=== PATIENT | male | born 1980 | race African-American/Black ===

== ENCOUNTER 2021-10-19 10:11 | Emergency (ER) | payer MEDICAID ==
[~2021-10-19] VITALS: Ht 172.7 cm; Wt 85.0 kg
[2021-10-19] MEDS ORDERED: IBUPROFEN 600MG TABLET PO ONE (10:45)
[2021-10-19] MEDS ORDERED: ONDANSETRON 4MG ODT PO ONE (10:45)
[2021-10-19 11:21] VITALS: BP 88/64
[2021-10-19] MEDS ORDERED: ALBU6.7H15 INH (11:39)
[2021-10-19] MEDS ORDERED: GUAI-741 MT (11:39)
[2021-10-19] MEDS ORDERED: ONDA4TAB11 PO (11:39)
[2021-10-19] MEDS ORDERED: IBUP-2029 MT (11:39)
== END 2021-10-19 11:45 | disposition home or self-care (01) ==
LOC: ER 10:11
DX: R50.9 Fever, unspecified (principal); M79.18 Myalgia, other site; Z20.822 Contact with and (suspected) exposure to COVID-19; R11.2 Nausea with vomiting, unspecified
CPT/HCPCS: 87426; 99283; C9803; Q0162

== ENCOUNTER 2021-10-22 10:16 | Emergency (ER) | payer MEDICAID ==
[~2021-10-22] VITALS: Ht 172.7 cm; Wt 82.0 kg
[~2021-10-22 10:16] MED LIST: ALBU6.7H15 INH; GUAI-741 MT; IBUP-2029 MT; ONDA4TAB11 PO
[2021-10-22] MEDS ORDERED: DIPHENHYDRAMINE 25MG CAPSULE PO ONE (11:00)
[2021-10-22] MEDS ORDERED: KETOROLAC 30MG/ML VIAL IM ONE (11:00)
[2021-10-22] MEDS ORDERED: METOCLOPRAMIDE HCL 5MG TABLET PO ONE (11:00)
[2021-10-22 12:14] VITALS: BP 130/72
== END 2021-10-22 12:16 | disposition home or self-care (01) ==
LOC: ER 10:16
DX: B34.9 Viral infection, unspecified (principal); J45.909 Unspecified asthma, uncomplicated; Z20.822 Contact with and (suspected) exposure to COVID-19
CPT/HCPCS: 71045; 87426; 96372; 99284; C9803; J1885; J8597; Q0163

== ENCOUNTER 2022-06-01 09:25 | Emergency (ER) | payer MEDICAID ==
[~2022-06-01] VITALS: Ht 175.3 cm; Wt 82.0 kg
[2022-06-01 09:37] VITALS: BP 135/85
[2022-06-01] MEDS ORDERED: ALBUTEROL (0.083%) 2.5MG/3ML NEB HHN STA (10:01)
[2022-06-01] MEDS ORDERED: PREDNISONE 20MG TABLET PO STA (10:01)
[2022-06-01] MEDS ORDERED: ALBU6.7H15 INH (10:02)
[2022-06-01] MEDS ORDERED: P50 MT (10:03)
== END 2022-06-01 11:54 | disposition home or self-care (01) ==
LOC: ER 09:25
DX: J45.901 Unspecified asthma with (acute) exacerbation (principal); Z98.890 Other specified postprocedural states
CPT/HCPCS: 93005; 94640; 99283; J7512; Z7610

== ENCOUNTER 2022-07-31 08:10 | Emergency (ER) | payer MEDICAID ==
[~2022-07-31] VITALS: Ht 175.3 cm; Wt 82.0 kg
[~2022-07-31 08:10] MED LIST changes: +P50 MT
[2022-07-31 08:22] VITALS: BP 125/86
== END 2022-07-31 10:22 | disposition left against medical advice (07) ==
LOC: ER 08:36
DX: J45.909 Unspecified asthma, uncomplicated (principal); Z79.899 Other long term (current) drug therapy
CPT/HCPCS: 99281